=== PATIENT | female | born 1970 | race African-American/Black ===

== ENCOUNTER 2023-02-28 17:41 | Emergency (ER) | payer BC ==
[2023-02-28 18:10] VITALS: BP 161/76; PULSE 81; RESP 18; TEMP 97.9; BMI 34.8
[2023-02-28] MEDS ORDERED: SODIUM CHLORIDE 1,000 ML IV STA (18:39)
[2023-02-28] MEDS ORDERED: ONDANSETRON 4 MG/2 ML VIAL IVPUSH STA (18:39)
[2023-02-28] MEDS ORDERED: ONDANSETRON 4 MG/2 ML VIAL ONE (18:47)
[2023-02-28 19:38] LABS: BASO % 0.2 % (0-2.0); EOS % 0.2 % (0-4.5); HEMATOCRIT 35.6 % (32.4-45.2); HEMOGLOBIN 11.3 GM/dL (10.7-15.3); MCH 23.6 pg (25.7-33.7); MCHC 31.9 g/dl (32.0-36.0); MEAN PLT VOLUME 7.8 fl (7.5-11.1); MONO % 5.6 % (3.8-10.2); PLATELET COUNT 415 10^3/uL (134-434); RBC 4.81 M/mm3 (3.60-5.2); RDW 21.3 % (11.6-15.6); WHITE BLOOD COUNT 10.4 K/mm3 (4.0-10.0)
[2023-02-28 19:43] LABS: CHLORIDE 101 mmol/L (98-107); SODIUM 128 mmol/L (136-145)
[2023-02-28 19:46] LABS: CALCIUM 8.2 mg/dL (8.5-10.1)
[2023-02-28 19:47] LABS: ALBUMIN 3.5 g/dl (3.4-5.0); BLOOD UREA NITROGEN 9.2 mg/dL (7-18); CO2 25 mmol/L (21-32); GLUCOSE,RANDOM 97 mg/dL (74-106); LIPASE 85 U/L (73-393); MAGNESIUM 2.2 mg/dL (1.8-2.4)
[2023-02-28 19:49] LABS: CREATININE 0.9 mg/dL (0.55-1.3)
[2023-02-28 19:51] LABS: TOT PROT 8.7 g/dl (6.4-8.2)
[2023-02-28 19:53] LABS: ALK PHOS 69 U/L (45-117)
[2023-02-28 20:19] LABS: ANION GAP 2 MMOL/L (8-16); BILIRUBIN,TOTAL < 0.1 mg/dL (0.2-1); POTASSIUM > 10.0 mmol/L (3.5-5.1); SGOT/AST 209 U/L (15-37); SGPT/ALT 41 U/L (13-61)
[2023-02-28] MEDS ORDERED: SODIUM CHLORIDE 0.9% 500 ML INFUS.BAG IV ONE (20:33)
[2023-02-28 21:22] LABS: URINE APPEARANCE CLEAR; URINE BILIRUBIN NEGATIVE (NEGATIVE); URINE COLOR YELLOW; URINE GLUCOSE (UA) NEGATIVE (NEGATIVE); URINE KETONE NEGATIVE (NEGATIVE); URINE LEUK ESTERASE NEGATIVE (NEGATIVE); URINE NITRITE NEGATIVE (NEGATIVE); URINE PROTEIN NEGATIVE (NEGATIVE); URINE UROBILINOGEN 0.2 mg/dL (0.2-1.0)
[2023-02-28 21:22] LABS: POTASSIUM 4.1 mmol/L (3.5-5.1)
[2023-02-28 21:24] LABS: ALBUMIN 3.6 g/dl (3.4-5.0); BLOOD UREA NITROGEN 8.7 mg/dL (7-18); CALCIUM 8.3 mg/dL (8.5-10.1); MAGNESIUM 1.9 mg/dL (1.8-2.4)
[2023-02-28 21:27] LABS: CREATININE 0.9 mg/dL (0.55-1.3)
[2023-02-28 21:29] LABS: BILIRUBIN,TOTAL 0.3 mg/dL (0.2-1); TOT PROT 7.7 g/dl (6.4-8.2)
[2023-02-28 21:45] LABS: ANISOCYTOSIS 1+; MACROCYTOSIS 1+
== END 2023-02-28 22:15 | disposition home or self-care (01) ==
LOC: JER 17:41
DX: R11.2 Nausea with vomiting, unspecified (principal); R19.7 Diarrhea, unspecified; R63.8 Other symptoms and signs concerning food and fluid intake; Z20.822 Contact with and (suspected) exposure to COVID-19
CPT/HCPCS: 0241U-QW; 36415; 80053; 81003; 82550; 82553; 83605; 83690; 83735; 84484; 85025; 93005; 93010; 99284-25